=== PATIENT | male | born 1950 | race Caucasian/White ===

== ENCOUNTER 2019-01-25 09:01 | Observation (INO) | payer MEDICARE ==
[~2019-01-25] VITALS: Ht 170.2 cm; Wt 87.6 kg
[2019-01-25] VITALS (10 sets, daily range): BP systolic 147–171; BP diastolic 64–90
[~2019-01-25 09:01] MED LIST: CIPROFLOXACIN 400MG PREMIX 200 ML IV ONE; HYDROmorphone 2 MG/ML VIAL IV PRN; IV RINGERS,LACTATED 1000ML 1,000 ML IV SCH; LIDOCAINE 1% PF 2 ML VIAL. ID PRN; LIDOCAINE 2% JELLY 6ML IN APPLICATOR. ONE; METF10007 PO; MORPHINE SULFATE 2 MG/ML VIAL. IV PRN; ONDANSETRON PF 4 MG/2 ML VIAL. IV PRN; PROCHLORPERAZINE 10 MG/2 ML VIAL. IV PRN; fentaNYL PF VIAL 100 MCG/2 ML VIAL IV PRN
[2019-01-25] MEDS ORDERED: TAMS0.4C97 PO (09:22)
[2019-01-25] MEDS ORDERED: ASPI325T8 PO (09:22)
[2019-01-25] MEDS ORDERED: INSULIN LISPRO 100 UNIT/ML 3ML VIAL for OP,RR ONLY. SQ PRN (09:30)
[2019-01-25] MEDS ORDERED: ONDANSETRON PF 4 MG/2 ML VIAL. ONE (10:28)
[2019-01-25] MEDS ORDERED: DEXAMETHASONE SOD PHOS 4 MG/ML VIAL ONE (10:28)
[2019-01-25] MEDS ORDERED: LIDOCAINE 2% PF 5 ML VIAL. ONE (10:28)
[2019-01-25] MEDS ORDERED: PHENYLEPHRINE in 0.9% NACL PF 1 MG/10 ML SYRINGE. IV ONE (10:28)
[2019-01-25] MEDS ORDERED: PROPOFOL 20 ML IV ONE (10:28)
[2019-01-25] MEDS ORDERED: SEVOFLURANE > 120 MINUTES. IH ONE ×2 (10:28→13:16)
[2019-01-25] MEDS ORDERED: ROCURONIUM 50 MG/5 ML VIAL. ONE (11:19)
[2019-01-25] MEDS ORDERED: NEOSTIGMINE METHYLSULFATE 5 MG/5 ML SYRINGE. ONE (12:48)
[2019-01-25] MEDS ORDERED: GLYCOPYRROLATE 1 MG/5 ML VIAL. ONE (12:48)
--- NOTE | 2019-01-25 12:56 | PDOC4 ---
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
[2019-01-25] MEDS ORDERED: oxyCODONE IR 5 MG TABLET PO PRN (13:00)
[2019-01-25] MEDS ORDERED: PROCHLORPERAZINE 10 MG/2 ML VIAL. IV PRN (13:00)
[2019-01-25] MEDS ORDERED: MORPHINE SULFATE 2 MG/ML VIAL. IV PRN (13:00)
[2019-01-25] MEDS ORDERED: ONDANSETRON PF 4 MG/2 ML VIAL. IV PRN (13:00)
[2019-01-25] MEDS: DOCUSATE SODIUM 100 MG CAPSULE. PO SCH ×2 (13:56→20:44)
[2019-01-25] MEDS: IV RINGERS,LACTATED 1000ML 1,000 ML IV SCH ×2 (13:56→20:44)
--- NOTE | 2019-01-25 14:48 | OP ---
DATE OF SURGERY: PREOPERATIVE DIAGNOSIS: Prostate urethral tumor. POSTOPERATIVE DIAGNOSIS: Prostate urethral tumor. PROCEDURES: 1. TURBT, large. 2. Transurethral resection of the prostate. CONDITION: Stable. COMPLICATIONS: None. FINDINGS: A very large left lateral tumor going to the bladder neck and involving prostatic urethra bilaterally all the way to verumontanum. PROCEDURE IN DETAIL: The patient was taken back to the procedure room and placed under general anesthesia in supine position per protocol. He was prepped and draped in usual fashion in dorsal lithotomy position. Timeout was performed. SCDs were attached. IV antibiotics were administered. A 21-Singaporean rigid cystoscope was advanced per urethra into the bladder. Careful systematic review of the bladder visualized large nodular tumor about 5-6 cm occupying the left lateral wall with some satellite lesion going to the bladder neck into the prostatic urethra. Bladder was left full and a 26-Singaporean continuous flow saline bipolar was used. I first took down the prostatic urethra lesions in order to prevent any prostate bleeding in order to resect some prostate tissue and also to ensure there are appropriate depth of resection with end result being a TURP with a wide open prostate fossa. I then focused my attention on the left lateral wall tumor. Once again, a 24-Singaporean loop was used to remove the tumor medially with care to avoid any lateral injury due to obturator reflex. This was tedious and took longer than usual, but I was able to clean all the tumors with appropriate depth obtained. Left ureteral orifice was seen unharmed at the end of the procedure. Pinpoint hemostasis was obtained. A 22-Singaporean 3-way catheter was placed with mostly pink tinged urine. CBI was placed for overnight stay. YOVANY TAVAREZ MD DR: YOLI/aisha JOB#: [id number] / [id number]
[2019-01-25] MEDS ORDERED: IBUPROFEN 400 MG TABLET. PO PRN (16:30)
[2019-01-26 03:00] VITALS: BP 122/64
[2019-01-26 07:00] VITALS: BP 150/60
[2019-01-26] MEDS: DOCUSATE SODIUM 100 MG CAPSULE. PO SCH (08:13)
[2019-01-26] MEDS: IV RINGERS,LACTATED 1000ML 1,000 ML IV SCH (08:13)
--- NOTE | 2019-01-26 10:19 | DISCH ---
DISCHARGE INSTRUCTIONS Condition on Discharge Condition on Discharge: Stable Activity After Discharge Activity Instructions for Disc: Activity as tolerated, Avoid exertion Lifting Instructions after Dis: No heavy lifting Exercise Instruction after Dis: Progress as tolerated Weight Bearing Status after Di: No restrictions Checks after Discharge DC Comment: Call if increasing blood or clots in urine, inability to urinate, fever Contacting the DRNatalia after DC Call your doctor for: If your condition worsens Follow-Up Follow up with: Dr. Chaudhry at [facility] [place] 2 [place]. [phone] BRYCE MONTALVO Jan 26, 2019 10:19
--- NOTE | 2019-01-26 10:22 | PDOC3 ---
Discharge Summary Visit Information Date of Admission: Jan 25, 2019 Date of Discharge: Jan 26, 2019 Admitting Diagnosis: bladder tumor Final Diagnosis bladder tumor Brief Hospital Course Allergies Allergies Coded Allergies Type Severity Reaction Last Updated Verified No Known Drug Allergies 01/25/19 No Vital Signs Vital Signs Date Time Temp Pulse Resp B/P (MAP) Pulse Ox O2 Delivery O2 Flow Rate FiO2 01/26/19 08:00 Room Air 01/26/19 07:00 97.9 63 18 150/60 (90) 97 97.9 01/26/19 03:00 10.0 Lab Results Laboratory Tests Test 01/25/19 09:28 01/25/19 10:40 01/25/19 13:14 01/25/19 16:43 Glucose (Fingerstick) 216 mg/dL (70-99) 168 mg/dL (70-99) 146 mg/dL (70-99) 239 mg/dL (70-99) Test 01/25/19 20:27 01/26/19 08:16 Glucose (Fingerstick) 244 mg/dL (70-99) 261 mg/dL (70-99) Laboratory Tests Test 01/25/19 10:40 01/25/19 13:14 01/25/19 16:43 01/25/19 20:27 Glucose (Fingerstick) 168 mg/dL (70-99) 146 mg/dL (70-99) 239 mg/dL (70-99) 244 mg/dL (70-99) Test 01/26/19 08:16 Glucose (Fingerstick) 261 mg/dL (70-99) Brief Hospital Course 68yo male admitted for TURBT by Dr. Chaudhry. Patient tolerated procedure well and was admitted overnight for CBI. This AM his urine was clear of blood and clots. CBI and navarrete were discontinued and patient was able to urinate without issue. He was discharged with instructions for f/u with Dr. Chaudhry in 2 weeks. Assessment Assessment Bladder, prostate tumors Discharge Information Condition at Discharge: Stable Follow Up: Weeks (two weeks with Dr. Chaudhry) Disposition/Orders: D/C to Home Scheduled Aspirin (Aspirin) 325 Mg Tablet, 1 TAB PO DAILY for supplement, #30 Ref 5 (Reported) Entered as Reported by: Luisa Flores on 01/25/19921 Last Taken: Unknown Dose on 01/17/19 Last Action: New Order on 01/25/19921 by Luisa Flores Metformin Hcl (Metformin Hcl) 1,000 Mg Tablet, 1,000 MG PO DAILYWBKFT for ANTI- DIABETIC, Ref 0 (Reported) Entered as Reported by: MAURO JEFFRIES on 04/07/16937 Tamsulosin Hcl (Flomax) 0.4 Mg Cap.er.24h, 1 CAP PO DAILY for prostate, #30 Ref 11 (Reported) Entered as Reported by: Luisa Flores on 01/25/19921 Last Action: New Order on 01/25/19921 by Luisa Flores Patient Instructions Patient Instructions Call DrNatalia if blood/clots in urine, inability to urinate, fevers >100.5 F/u 2 weeks BRYCE Doyle Jan 26, 2019 10:22
[2019-01-26 10:53] VITALS: BP 144/64
--- NOTE | 2019-01-27 16:06 | PATHOLOGY ---
[facility] Accession Number: [id number] . 01 Material submitted: . PART A: urethra - PROSTATE URETHRA PART B: bladder - BLADDER TUMOR . 01 Clinical history: . BPH . 02 Diagnosis: A. Prostate tissue, transurethral resection: - Papillary high grade urothelial carcinoma, with focal superficial lamina propria invasion. - Chronic inflammation. . B. 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 - No definitive muscular wall invasion identified. . (JPM:mml; 01/27/2019) [facility] 01/27/2019 1511 Local . 02 Comment: The case is also examined by Dr. Smyth and Dr. Bautista, both of whom concur with the diagnoses. (JPM:mml; 01/27/2019) . 02 Electronically signed: . Isaias Acharya MD, Pathologist NPI- [id number] . 01 Gross description: . A. The specimen is received in formalin, labeled "Marcello Grant, prostate urethra". Received are multiple segments of pink-olsen soft tissue measuring 1.5 x 1.2 x 0.4 cm in aggregate dimensions. The specimen is filtered and entirely submitted in cassette A1. . B. The specimen is received in formalin, labeled "Marcello Grant, bladder tumor". Received is a moderate amount of light olsen to pink-olsen friable soft tissue measuring 6.0 x 4.2 x 1.1 cm in aggregate dimensions. The specimen is filtered and entirely submitted in cassettes B1 through B6. (CAA; 01/26/2019) QAC/QAC 01/26/2019 0835 Local . 02 Pathologist provided ICD-10: C67.9 . 02 CPT . 188664, [id number] Specimen Comment: A courtesy copy of this report has been sent to Specimen Comment: [phone], . Specimen Comment: Report sent to / DR CHAUDHRY Performed at: [address] [facility], [place] [id number] MD Jose Lyons MD Phone: [phone] [facility]formed at: [facility] [address] [place], [place] [id number] MD Isaias Acharya MD Phone: [phone]
== END 2019-01-26 12:58 | disposition home or self-care (01) ==
LOC: SURG 09:01 → 4 NORTH 12:57
PROVIDERS: ADMIT Urology; ATTEND Urology
DX: D49.4 Neoplasm of unspecified behavior of bladder (principal); I25.10 Atherosclerotic heart disease of native coronary artery without angina pectoris
CPT/HCPCS: 52240; 82962; 88305; A7015; G0378; G0379; J0744; J1100; J2001; J2370; J2405; J2704; J2710; J3490; J7120